=== PATIENT | female | born 1970 | race African-American/Black ===

== ENCOUNTER 2019-08-21 17:09 | Emergency (ER) | payer MEDICAID ==
[~2019-08-21] VITALS: Ht 162.6 cm; Wt 59.0 kg
--- NOTE | 2019-08-21 17:09 | NUR ---
Patient JUANIS QUIÑONEZ for pre-booking medical screening exam, transferred to chair [place]
[2019-08-21 17:18] VITALS: BP 205/133
[2019-08-21] MEDS ORDERED: amLODIPine 5 MG TAB PO ONE (17:20)
--- NOTE | 2019-08-21 17:20 | NUR ---
ASSESSMENT COMPLETED AT THIS TIME. PATIENT SITTING UP IN CHAIR, [place] [employer] AT CHAIRSIDE, PATIENT IN HANDCUFFS. PATIENT AAO. WILL MONITOR PD CLOSELY. ERMD AWARE OF PATIENT STATUS.
--- NOTE | 2019-08-21 17:23 | NUR ---
PATIENT TAKEN TO XRAY IN WHEELCHAIR. WILL GIVE MEDICATION WHEN SHE RETURNS .
--- NOTE | 2019-08-21 17:53 | NUR ---
Dr. Dykes is evaluating the patient.
[2019-08-21 17:56] LABS: BASOPHILS # (AUTO) 0.1 K/uL (0.00-0.22); BASOPHILS % (AUTO) 1.2 % (0.0-2.0); EOSINOPHILS # (AUTO) 0.2 K/uL (0-0.4); EOSINOPHILS % (AUTO) 4.2 % (0.0-4.0); HEMATOCRIT 43.9 % (36-48); LYMPHOCYTES # (AUTO) 0.5 K/uL (2.5-16.5); LYMPHOCYTES % (AUTO) 10.3 % (20.5-51.1); MEAN CORPUSCULAR HEMOGLOBIN 30 pg (27-31); MEAN CORPUSCULAR HGB CONC 32 g/dL (33-37); MEAN CORPUSCULAR VOLUME 92.4 fL (80-94); MONOCYTES # (AUTO) 0.6 K/uL (0.8-1.0); MONOCYTES % (AUTO) 11.2 % (1.7-9.3); NEUTROPHILS # (AUTO) 3.7 K/uL (1.8-7.7); NEUTROPHILS % (AUTO) 73.1 % (42.2-75.2); PLATELET COUNT (AUTO) 325 K/uL (140-450); RED BLOOD CELL COUNT(AUTO) 4.76 MIL/uL (4.20-5.40); RED CELL DISTRIBUTION WIDTH 18.5 % (11.6-13.7); WHITE BLOOD COUNT (AUTO) 5.1 K/uL (4.8-10.8)
[2019-08-21 18:40] LABS: ALBUMIN 3.8 g/dL (3.4-5.0); ANION GAP 19.5 (8-16); CARBON DIOXIDE 29.3 mmol/L (21-32); POTASSIUM 4.8 mmol/L (3.5-5.1)
[2019-08-21 18:46] LABS: CREATININE 9.8 mg/dL (0.6-1.3)
--- NOTE | 2019-08-21 18:54 | NUR ---
pt moved to bed 5
[2019-08-21 19:01] LABS: TOTAL BILIRUBIN 0.5 mg/dL (0.0-1.0)
--- NOTE | 2019-08-21 19:18 | NUR ---
PT DENIES BLURRED VISION. PT STATES 2/10 ACHING PAIN TO HEAD WITH MILD ABD PAIN, PT STATES PAIN IS TOLERABLE. PT REQUESTS TO BE PLACED ON 2L NC, STATES SHE USUALLY IS ON 02.
--- NOTE | 2019-08-21 19:31 | NUR ---
[place] [employer] AT PT BEDSIDE.
[2019-08-21] MEDS ORDERED: IBUPROFEN 800 MG TAB PO ONE (20:30)
--- NOTE | 2019-08-21 21:00 | NUR ---
PT REMOVED IV BY HERSELF
[2019-08-21 21:10] VITALS: BP 175/97
--- NOTE | 2019-08-21 21:22 | NUR ---
Patient does not wish to proceed with medical care recommended by DR MARTE. Patient given information related to possible complications, up to and including , which could occur as a result of leaving hospital at this time. Patient verbalizes understanding of risks involved leaving against medical advice. Patient DID NOT SIGN AMA FORM.
== END 2019-08-21 21:10 | disposition left against medical advice (07) ==
LOC: MED 17:09
DX: I12.0 Hypertensive chronic kidney disease with stage 5 chronic kidney disease or end stage renal disease (principal); N18.6 End stage renal disease; E87.70 Fluid overload, unspecified; Z91.19 Patient's noncompliance with other medical treatment and regimen; Z90.49 Acquired absence of other specified parts of digestive tract
CPT/HCPCS: 36415; 71045; 80053; 85025; 99284